=== PATIENT | male | born 1990 | race Caucasian/White ===

== ENCOUNTER 2020-08-15 14:04 | Emergency (ER) | payer OTHER ==
[~2020-08-15] VITALS: Ht 203.2 cm; Wt 132.7 kg
[2020-08-15] MEDS ORDERED: BACTDSTA (14:17)
[2020-08-15 15:44] LABS: BASO % 0.2 % (0.0-1.0); EOS # 0.1 10^3/uL (0.0-0.5); EOS % 0.5 % (0.0-3.0); HEMATOCRIT 45.2 % (42.0-52.0); HEMOGLOBIN 14.9 g/dl (13.5-17.5); LYMPH # 1.8 10^3/uL (1.5-5.0); LYMPH % 13.7 % (24.0-44.0); MEAN CORPUSCULAR HEMOGLOBIN 31.4 pg (27.0-33.0); MEAN CORPUSCULAR VOLUME 95.4 fl (80.0-96.0); MONO # 0.8 10^3/uL (0.0-0.8); MONO % 5.8 % (2.0-8.0); NEUTROPHILS # 10.6 10^3/uL (1.5-8.5); NEUTROPHILS % 79.3 % (36.0-66.0); PLATELET COUNT, AUTOMATED 237 10^3/uL (150-450); RED BLOOD COUNT 4.74 10^6/uL (4.30-6.10); WHITE BLOOD COUNT 13.4 10^3/uL (4.0-10.0)
[2020-08-15 16:09] LABS: ERYTHROCYTE SEDIMENTATION RATE 64 mm/hr (0-15)
[2020-08-15 16:10] LABS: BLOOD UREA NITROGEN 10 MG/DL (7-18); CALCIUM LEVEL 9.1 MG/DL (8.5-10.1); CARBON DIOXIDE LEVEL 29 MEQ/L (21-32); CHLORIDE LEVEL 104 MEQ/L (98-107); GLOMERULAR FILTRATION RATE > 60.0 (>60); GLUCOSE, FASTING 96 MG/DL (70-100); POTASSIUM SERUM 3.9 MEQ/L (3.5-5.1); SODIUM LEVEL 138 MEQ/L (136-145)
[2020-08-15] MEDS ORDERED: MORPHINE 4 MG/ML 1ML VIAL/SYRINGE (J2270) IV ONE (17:45)
[2020-08-15] MEDS ORDERED: VANCOMYCIN HCL 2,000 MG in IV FLUID PLACE HOLDER 1 EA IV ONE (17:45)
[2020-08-15] MEDS ORDERED: ONDANSETRON 4MG/2ML VIAL IV ONE (17:45)
[2020-08-15] MEDS ORDERED: VANCOMYCIN HCL 1,000 MG, VIAL MATE ADAPTER 1 EACH in NS 250 ML IV ONE ×2 (19:00→20:00)
[2020-08-15] MEDS ORDERED: HYDR-3713 PO (19:36)
[2020-08-15 21:08] VITALS: BP 134/65
== END 2020-08-15 21:25 | disposition home or self-care (01) ==
LOC: M ED 14:04
DX: L03.115 Cellulitis of right lower limb (principal); F17.210 Nicotine dependence, cigarettes, uncomplicated
CPT/HCPCS: 80048; 83605; 85025; 85652; 86140; 87040; 96365; 96367; 96368; 96375; 99283; J2270; J2405; J3370

== ENCOUNTER 2020-08-17 21:50 | Observation (INO) | payer OTHER ==
[~2020-08-17] VITALS: Ht 203.2 cm; Wt 131.6 kg
[~2020-08-17 21:50] MED LIST: BACTDSTA; HYDR-3713 PO
[2020-08-17] MEDS ORDERED: KETOROLAC 30 MG/ML 1ML VIAL IV ONE (23:45)
[2020-08-18 00:27] LABS: BASO % 0.3 % (0.0-1.0); EOS # 0.1 10^3/uL (0.0-0.5); EOS % 0.3 % (0.0-3.0); HEMATOCRIT 43.1 % (42.0-52.0); HEMOGLOBIN 14.1 g/dl (13.5-17.5); LYMPH # 1.5 10^3/uL (1.5-5.0); LYMPH % 9.6 % (24.0-44.0); MEAN CORPUSCULAR HEMOGLOBIN 31.3 pg (27.0-33.0); MEAN CORPUSCULAR HGB CONC 32.7 g/dl (32.0-36.5); MEAN CORPUSCULAR VOLUME 95.6 fl (80.0-96.0); MONO # 0.7 10^3/uL (0.0-0.8); MONO % 4.8 % (2.0-8.0); NEUTROPHILS # 12.8 10^3/uL (1.5-8.5); NEUTROPHILS % 84.5 % (36.0-66.0); PLATELET COUNT, AUTOMATED 267 10^3/uL (150-450); RED BLOOD COUNT 4.51 10^6/uL (4.30-6.10); WHITE BLOOD COUNT 15.1 10^3/uL (4.0-10.0)
--- NOTE | 2020-08-18 00:42 | REPVR ---
PROCEDURE INFORMATION: Exam: XR Right Tibia and Fibula Exam date and time: 08/17/2020 11:55 PM Age: 30 years old Clinical indication: Pain; Lower leg; Right; Additional info: Cellulitis TECHNIQUE: Imaging protocol: XR Right tibia and fibula. Views: 2 views. COMPARISON: No relevant prior studies available. FINDINGS: Bones/joints: No acute fracture or dislocation. Soft tissues: Soft tissue swelling. IMPRESSION: 1. No acute osseous abnormality. 2. Soft tissue swelling. Electronically signed by: Jose Daniel Reyes On 08/18/2020 00:41:40 AM
[2020-08-18 00:47] LABS: ERYTHROCYTE SEDIMENTATION RATE 61 mm/hr (0-15)
[2020-08-18 00:48] LABS: RSV AMPLIFICATION NEGATIVE (NEGATIVE)
[2020-08-18 01:10] LABS: ALBUMIN 4.1 GM/DL (3.2-5.2); ALT/SGPT 18 U/L (12-78); BILIRUBIN,TOTAL 0.4 MG/DL (0.2-1.0); BLOOD UREA NITROGEN 13 MG/DL (7-18); CALCIUM LEVEL 9.1 MG/DL (8.5-10.1); CARBON DIOXIDE LEVEL 30 MEQ/L (21-32); CHLORIDE LEVEL 102 MEQ/L (98-107); CREATININE FOR GFR 0.82 MG/DL (0.70-1.30); GLOMERULAR FILTRATION RATE > 60.0 (>60); GLUCOSE, FASTING 99 MG/DL (70-100); POTASSIUM SERUM 3.7 MEQ/L (3.5-5.1); SODIUM LEVEL 137 MEQ/L (136-145); TOTAL PROTEIN 8.1 GM/DL (6.4-8.2)
[2020-08-18] MEDS ORDERED: VANCOMYCIN HCL 1,000 MG, VIAL MATE ADAPTER 1 EACH in NS 250 ML IV ONE ×3 (01:40→03:00)
--- NOTE | 2020-08-18 01:41 | REPVR ---
PROCEDURE INFORMATION: Exam: US Right Non-Vascular Joint or Other Extremity Structure Exam date and time: 08/18/2020 1:29 AM Age: 30 years old Clinical indication: Mass or lump; Lower leg; Right; Additional info: Swelling- assess abscess TECHNIQUE: Imaging protocol: Right US joint or other nonvascular extremity structure or structures. Real-time ultrasound with image documentation. Limited study. Exam focused on the lower extremity in the region of clinical interest. COMPARISON: CR Tibia, Fibula lower leg RIGHT 2020-08-17 23:48 FINDINGS: Soft tissues: Unremarkable. No loculated collections. Vasculature: Heterogeneous complex hypoechoic area measuring 3.8 x 1.1 x 3.4 cm without vascular flow, possible abscess. IMPRESSION: Heterogeneous complex hypoechoic area measuring 3.8 x 1.1 x 3.4 cm without vascular flow, possible abscess. Electronically signed by: Jose Daniel Reyes On 08/18/2020 01:40:38 AM
[2020-08-18] MEDS ORDERED: LIDOCAINE W/EPINEPHRINE 1% 20ML VIAL SC ONE (02:20)
[2020-08-18] MEDS ORDERED: HYDR-4571 PO (04:12)
[2020-08-18] MEDS ORDERED: IBUP1TAB7 PO (04:12)
[2020-08-18] MEDS ORDERED: BACT800T5 PO (04:12)
[2020-08-18] MEDS ORDERED: VANCOMYCIN HCL 1,000 MG, VIAL MATE ADAPTER 1 EACH in NS 250 ML IV SCH (05:00)
[2020-08-18] MEDS ORDERED: MAALOX 30 ML SUSP *UDC PO PRN (05:00)
[2020-08-18] MEDS ORDERED: ACETAMINOPHEN TAB 650MG DOSE (2X325MG) PO PRN (05:00)
[2020-08-18] MEDS ORDERED: MOM 30ML SUSPENSION UDC PO PRN (05:00)
--- NOTE | 2020-08-18 05:02 | HPEPDOC ---
[facility] Medical History & Physical Date of Admission Aug 18, 2020 Date of Service: Aug 18, 2020 History and Physical CHIEF COMPLAINT: Right leg abscess HISTORY OF PRESENT ILLNESS: 30-year-old male with a history of nicotine dependence, presented to the ER with worsening pain in the anterior tibia. Patient was seen 2 days ago in the ER for right leg cellulitis which was demarcated with surgical marker and the patient was discharged with by mouth Bactrim. While the erythema has improved somewhat, patient developed an abscess in the anterior aspect of the tibia with severe pain preventing him from walking. On arrival, patient was afebrile with a also a 6, respiratory 18, blood pressure 110/76, and pulse ox 99% on room air. Found to have illicit doses of 50.1, elevated ESR at 61. Patient denies chest pain, seizures breath, palpitations, fever, chills, nausea, vomiting or diarrhea. Abscess was incised and drained by Dr. Pace in the ER. Gram stain and wound culture were sent as well as blood cultures. Patient was started on empiric vancomycin. Case was discussed with Dr. Rey from the ER who will consult on the patient. Patient admitted to hospitalist service. PAST MEDICAL HISTORY: Nicotine dependence SOCIAL HISTORY: Current smoker 2 packs per day. Rare alcohol use Denies illicit drug use FAMILY HISTORY: Reviewed with patient, did not provide pertinent family history ALLERGIES: Please see below. REVIEW OF SYSTEMS: 10 point review of systems was conducted, rollover findings are noted in HPI. HOME MEDICATIONS: Please see below. PHYSICAL EXAMINATION: VITAL SIGNS: please see below General: NAD, comfortable HEENT: PERRLA, EOMI, sclerae clear Neck: supple, normal ROM, no JVD Respiratory: lungs CTAB, no wheeze, no rales, no crackles CVS: RRR, normal S1, S2, no murmurs Abdo: soft, no masses, no hepatosplenomegaly, BS+, no rebound tenderness Extremities: no edema, pulses 2+. Right leg has large swelling on the upper proximal third of the tibia. Abscess was incised and drained by ER physician, packing in place. MSK: no joint deformities, normal ROM Neuro: no focal neuro deficits, moving all 4 extremities, CN2-12 intact. Strength 5/5 in all 4 extremities. No nystagmus. Psych: calm, cooperative, AAO x 3 LABORATORY DATA: See below. IMAGING: XR tibia and fibula (08/17/20): 1. No acute osseous abnormality. 2. Soft tissue swelling. US RLE non vascular (08/18/20): Heterogeneous complex hypoechoic area measuring 3.8 x 1.1 x 3.4 cm without vascular flow, possible abscess. MICROBIOLOGY: Please see below. ASSESSMENT: 30-year-old male presenting with right lower extremity abscess and cellulitis, failing to respond to by mouth Bactrim therapy. Status post incision and drainage of abscess in the ER. Admitted for IV antibiotics and surgical consultation. PLAN: R leg cellulitis and abscess overlying tibia - afebrile. Increased WBC from 08/15/20 to 15.1. - failed PO bactrim - now developed abscess on anterior leg overlying tibia, below patella - s/p I&D in ER, packing inserted - wound and blood cultures sent - started on vancomycin, will be continued - pain control with oxycodone - Dr. Rey was consulted from the ER. Nicotine dependence - nicotine patch DVT ppx: SCDs. TEDs. Heparin. Dispo: pending clinical improvement. Vital Signs Vital Signs Date Time Temp Pulse Resp B/P (MAP) Pulse Ox O2 Delivery O2 Flow Rate FiO2 08/18/20 00:05 08/17/20 21:51 98.7 86 18 99 Room Air Laboratory Data Labs 24H Laboratory Tests 2 08/18/20 00:00: Immature Granulocyte % (Auto) 0.5, Neutrophils (%) (Auto) 84.5H, Lymphocytes (%) (Auto) 9.6L, Monocytes (%) (Auto) 4.8, Eosinophils (%) (Auto) 0.3, Basophils (%) (Auto) 0.3, Neutrophils # (Auto) 12.8H, Lymphocytes # (Auto) 1.5, Monocytes # (Auto) 0.7, Eosinophils # (Auto) 0.1, Basophils # (Auto) 0.0, Nucleated Red Blood Cells % (auto) 0.0, Erythrocyte Sedimentation Rate 61H, Anion Gap 5L, Glomerular Filtration Rate > 60.0, Calcium Level 9.1, Total Bilirubin 0.4, Aspartate Amino Transf (AST/SGOT) 9, Alanine Aminotransferase (ALT/SGPT) 18, Alkaline Phosphatase 87, C-Reactive Protein, Quantitative 13.10H, Total Protein 8.1, Albumin 4.1, Albumin/Globulin Ratio 1.0, Coronavirus (COVID-19)(PCR) NEGATIVE, Influenza Type A (RT-PCR) NEGATIVE, Influenza Type B (RT-PCR) NEGATIVE, Respiratory Syncytial Virus (PCR) NEGATIVE CBC/BMP Laboratory Tests 08/18/20 00:00 Microbiology Microbiology 08/18/20 Gram Stain, Received Pending 08/18/20 Wound Culture, Received Pending 08/18/20 Blood Culture, Received Pending 08/18/20 Blood Culture, Received Pending Home Medications Scheduled Doxycycline Monohydrate (Doxycycline) 100 Mg Capsule, 1 CAP PO BID Scheduled PRN Hydrocodone/Acetaminophen (Hydrocodone-Acetamin 5-325 mg) 1 Each Tablet, 1 TAB PO Q6H PRN for PAIN LEVEL 6-10 Allergies Coded Allergies: No Known Drug Allergies (Verified Allergy, Unknown, 08/15/20) A-FIB/CHADSVASC A-FIB History Current/History of A-Fib/PAF?: No YOLANDA RHODES MD Aug 18, 2020 05:01
[2020-08-18] MEDS: HEPARIN SOD (PORCINE) 5000UNITS/ML 1ML VIAL/SYRINGE SC SCH ×3 (05:58→20:45)
[2020-08-18 07:16] LABS: BASO % 0.2 % (0.0-1.0); EOS # 0.1 10^3/uL (0.0-0.5); EOS % 0.9 % (0.0-3.0); HEMATOCRIT 37.9 % (42.0-52.0); HEMOGLOBIN 12.4 g/dl (13.5-17.5); LYMPH % 16.5 % (24.0-44.0); MEAN CORPUSCULAR HEMOGLOBIN 31.4 pg (27.0-33.0); MEAN CORPUSCULAR HGB CONC 32.7 g/dl (32.0-36.5); MEAN CORPUSCULAR VOLUME 95.9 fl (80.0-96.0); MONO # 0.9 10^3/uL (0.0-0.8); MONO % 7.6 % (2.0-8.0); NEUTROPHILS % 74.3 % (36.0-66.0); PLATELET COUNT, AUTOMATED 234 10^3/uL (150-450); RED BLOOD COUNT 3.95 10^6/uL (4.30-6.10); WHITE BLOOD COUNT 12.1 10^3/uL (4.0-10.0)
[2020-08-18 07:20] LABS: BLOOD UREA NITROGEN 12 MG/DL (7-18); CALCIUM LEVEL 8.7 MG/DL (8.5-10.1); CARBON DIOXIDE LEVEL 26 MEQ/L (21-32); CHLORIDE LEVEL 105 MEQ/L (98-107); CREATININE FOR GFR 0.78 MG/DL (0.70-1.30); GLOMERULAR FILTRATION RATE > 60.0 (>60); GLUCOSE, FASTING 92 MG/DL (70-100); MAGNESIUM LEVEL 2.1 MG/DL (1.8-2.4); POTASSIUM SERUM 3.5 MEQ/L (3.5-5.1); SODIUM LEVEL 139 MEQ/L (136-145)
[2020-08-18] MEDS: DOCUSATE SODIUM 100MG CAPSULE PO SCH ×2 (09:08→20:43)
[2020-08-18] MEDS: VANCOMYCIN HCL 750 MG, VIAL MATE ADAPTER 1 EACH in NS 250 ML IV SCH ×4 (09:08→20:15)
[2020-08-18] MEDS: oxyCODONE 5MG TAB PO PRN ×3 (12:10→20:44)
--- NOTE | 2020-08-18 15:29 | IPNPDOC ---
Text Note Date of Service The patient was seen on 08/18/20. NOTE Subjective: No any acute events overnight. Patient denied fever, chills, nausea, vomiting. He told me that [place] and he has a lot of spiders at home. Objective: GENERAL APPEARANCE: NAD HEENT: no scleral icterus, no JVD, EOMI CARDIOVASCULAR: S1S2 LUNGS: CTA ABDOMEN: soft & not tender w palpitation MUSCULOSKELETAL: no cyanosis, no swelling INTEGUMENT: Right leg has large swelling on the upper proximal third of the tibia covered with dressing NEUROLOGICAL: cranial nerve function from 2-12 intact intact, follows commands, speech not dysarthric Assessment and plan Patient is 30 years old male presenting with right lower extremity abscess and cellulitis, failing to respond to by mouth Bactrim therapy. Status post incision and drainage of abscess in the ER. Admitted for IV antibiotics and surgical consultation. Right leg cellulitis s/p I&D in ER, packing inserted Ultrasound showed Heterogeneous complex hypoechoic area measuring 3.8 x 1.1 x 3.4 cm without vascular flow, possible abscess Pain management Dr. Rey follows him Continue vancomycin Nicotine dependence - nicotine patch VS,Fishbone, I+O VS, Fishbone, I+O Laboratory Tests 08/18/20 00:00 08/18/20 06:39 Vital Signs Date Time Temp Pulse Resp B/P (MAP) Pulse Ox O2 Delivery O2 Flow Rate FiO2 08/18/20 12:40 16 Room Air 08/18/20 05:00 74 109/53 (71) 94 08/17/20 21:51 98.7 I&O- Last 24 Hours up to 6 AM 08/18/20 06:00 Intake Total 540 ml Balance 540 ml GARY LARES DO Aug 18, 2020 15:29
[2020-08-18 22:00] VITALS: BP 111/56
[2020-08-19] VITALS (7 sets, daily range): BP systolic 109–135; BP diastolic 59–82
[2020-08-19] MEDS: VANCOMYCIN HCL 750 MG, VIAL MATE ADAPTER 1 EACH in NS 250 ML IV SCH ×6 (02:25→19:51)
[2020-08-19] MEDS: oxyCODONE 5MG TAB PO PRN ×4 (02:31→19:53)
[2020-08-19] MEDS: HEPARIN SOD (PORCINE) 5000UNITS/ML 1ML VIAL/SYRINGE SC SCH ×3 (05:19→21:45)
[2020-08-19 06:30] LABS: BASO % 0.4 % (0.0-1.0); EOS # 0.1 10^3/uL (0.0-0.5); EOS % 0.8 % (0.0-3.0); HEMATOCRIT 37.1 % (42.0-52.0); HEMOGLOBIN 11.9 g/dl (13.5-17.5); LYMPH # 2.1 10^3/uL (1.5-5.0); LYMPH % 20.7 % (24.0-44.0); MEAN CORPUSCULAR HEMOGLOBIN 30.5 pg (27.0-33.0); MEAN CORPUSCULAR HGB CONC 32.1 g/dl (32.0-36.5); MEAN CORPUSCULAR VOLUME 95.1 fl (80.0-96.0); MONO # 0.7 10^3/uL (0.0-0.8); MONO % 7.4 % (2.0-8.0); NEUTROPHILS % 70.5 % (36.0-66.0); PLATELET COUNT, AUTOMATED 238 10^3/uL (150-450); WHITE BLOOD COUNT 9.9 10^3/uL (4.0-10.0)
[2020-08-19 07:04] LABS: ALBUMIN 3.3 GM/DL (3.2-5.2); ALT/SGPT 16 U/L (12-78); BILIRUBIN,TOTAL 0.4 MG/DL (0.2-1.0); BLOOD UREA NITROGEN 8 MG/DL (7-18); CALCIUM LEVEL 8.2 MG/DL (8.5-10.1); CARBON DIOXIDE LEVEL 28 MEQ/L (21-32); CHLORIDE LEVEL 105 MEQ/L (98-107); CREATININE FOR GFR 0.62 MG/DL (0.70-1.30); GLOMERULAR FILTRATION RATE > 60.0 (>60); GLUCOSE, FASTING 92 MG/DL (70-100); MAGNESIUM LEVEL 2.2 MG/DL (1.8-2.4); POTASSIUM SERUM 3.9 MEQ/L (3.5-5.1); SODIUM LEVEL 138 MEQ/L (136-145); TOTAL PROTEIN 6.5 GM/DL (6.4-8.2)
[2020-08-19] MEDS: DOCUSATE SODIUM 100MG CAPSULE PO SCH ×2 (08:11→19:51)
[2020-08-19] MEDS ORDERED: MIDAZOLAM INJ 2MG/2ML VIAL (J2250 PER 1MG) As Ordered ONE (11:06)
[2020-08-19] MEDS ORDERED: fentaNYL 100 MCG/2 ML INJECTION (J3010) As Ordered ONE (11:07)
[2020-08-19] MEDS ORDERED: LIDOCAINE 2% 100MG/5ML SDV (FOR ANES.) As Ordered ONE (11:07)
[2020-08-19] MEDS ORDERED: propofoL 200 MG/20 ML VIAL As Ordered ONE (11:07)
[2020-08-19] MEDS ORDERED: ONDANSETRON 4MG/2ML VIAL As Ordered ONE (11:07)
[2020-08-19] MEDS ORDERED: LIDOCAINE 1% SDV 30ML VIAL As Ordered ONE (11:22)
[2020-08-19] MEDS ORDERED: BUPIVACAINE HCL 0.5% 30 ML VIAL As Ordered ONE (11:22)
[2020-08-19] MEDS ORDERED: KETAMINE HCL 200 MG/20 ML VIAL As Ordered ONE (11:32)
[2020-08-19] MEDS ORDERED: ONDANSETRON 4MG/2ML VIAL IV PRN (12:00)
[2020-08-19] MEDS ORDERED: METOCLOPRAMIDE INJ 10MG/2ML VIAL (J2765 PER 1) IV PRN (12:00)
[2020-08-19] MEDS ORDERED: PERCOCET 5MG/325MG TAB PO PRN (12:00)
[2020-08-19] MEDS ORDERED: LR 1,000 ML IV SCH (12:00)
[2020-08-19] MEDS ORDERED: KETOROLAC 30 MG/ML 1ML VIAL IV PRN (12:00)
[2020-08-19] MEDS ORDERED: fentaNYL 100 MCG/2 ML INJECTION (J3010) IV PRN (12:00)
--- NOTE | 2020-08-19 12:14 | ROOPDOC ---
[facility] Report Of Operation Report of Operation DATE OF PROCEDURE: 08/19/20 PREPROCEDURE DIAGNOSES: Necrotic infected wound to right anterior leg, possible insect/spider bite. POSTPROCEDURE DIAGNOSES: Necrotic infected wound to the right anterior leg. PROCEDURE PERFORMED: Incision and drainage, excisional debridement of necrotic soft tissues to the right anterior leg SURGEON: Lonny Garcia MD, ANESTHESIA: Local anesthesia using 1% lidocaine mixed with 1/4% Marcaine, monitored anesthesia care. ESTIMATED BLOOD LOSS: Approximately 10 mL. COMPLICATIONS: None. REMARKS: Patient admitted with about a 4-day history of sudden onset of increased swelling with progressive necrosis of the skin and soft tissue to the right anterior leg despite IV antibiotics. Patient not sure how this occurred, being suspected to be an insect bite or spider bite. There is skin necrosis and edema that is persistent despite the cellulitis improving.. FINDINGS: Necrotic skin and soft tissue was removed with sharp excisional debridement with a mixture of knife and Bovie cautery. Eventual wound came out to 6 x 6 x 1 cm. DESCRIPTION OF PROCEDURE: Patient is on vancomycin for coverage for Staph aureus. He was brought to the operating room, he remained on the stretcher. Monitoring leads as well as oxygen was placed. IV sedation then started. He is right anterior leg was prepped and draped in the usual sterile fashion. Insert timeout Uropathy has about a 5 cm patch of skin and soft tissue that is swollen the skin appears necrotic with some sloughing of the skin due to the edema of surrounding tissue. This was opened up in the emergency room yesterday and there is no active purulent drainage but clearly there is necrotic soft tissue underneath. He has some receding erythema over the entire lower leg which is improved with IV antibiotics. Not much edema beyond the infected tissues. Ankle does not seem to be so edematous. I liberally infiltrated local anesthesia around the skin and soft tissue. Initially used a knife and circumferentially incised the clearly necrotic sloughed off skin revealing necrotic soft tissues underneath. This was removed with Bovie cautery. This did not reach the muscles underneath but just the subcutaneous tissue. We continued debriding until we got to healthy edges. There work still some leftover edematous fat at the base but there is a good amount of oozing at the end. After checking for hemostasis with Bovie cautery, this was packed with saline moistened vaginal packing, prep gauze dressing placed on top of it and wrapped with Kerlix roll. Patient tolerated procedure well he was promptly awakened and brought to recovery room stable. LONNY GARCIA MD Aug 19, 2020 12:14
--- NOTE | 2020-08-19 12:42 | IPNPDOC ---
Text Note Date of Service The patient was seen on 08/19/20. NOTE Subjective: No any acute events overnight. Patient denied fever, chills, nausea, vomiting. He reported mild pain in the right leg Objective: GENERAL APPEARANCE: NAD HEENT: no scleral icterus, no JVD, EOMI CARDIOVASCULAR: S1S2 LUNGS: CTA ABDOMEN: soft & not tender w palpitation MUSCULOSKELETAL: no cyanosis, no swelling INTEGUMENT: Right leg has large swelling on the upper proximal third of the tibia covered with dressing NEUROLOGICAL: cranial nerve function from 2-12 intact intact, follows commands, speech not dysarthric Assessment and plan Patient is 30 years old male presenting with right lower extremity abscess and cellulitis, failing to respond to by mouth Bactrim therapy. Status post incision and drainage of abscess in the ER. Admitted for IV antibiotics and surgical consultation. Right leg cellulitis s/p I&D in ER, packing inserted Ultrasound showed Heterogeneous complex hypoechoic area measuring 3.8 x 1.1 x 3.4 cm without vascular flow, possible abscess Pain management Dr. Flanagan will proceed with debridement today Continue vancomycin Nicotine dependence - nicotine patch VS,Fishbone, I+O VS, Fishbone, I+O Laboratory Tests 08/19/20 05:47 Vital Signs Date Time Temp Pulse Resp B/P (MAP) Pulse Ox O2 Delivery O2 Flow Rate FiO2 08/19/20 12:18 71 18 133/84 (100) 95 Room Air 08/19/20 11:51 97.0 10.0 I&O- Last 24 Hours up to 6 AM 08/19/20 06:00 Intake Total 2050 ml Balance 2050 ml GARY LARES DO Aug 19, 2020 12:42
[2020-08-19] MEDS: NICOTINE 21MG/24HR 1 EA TRANSDERMAL TD PRN (23:25)
[2020-08-20] MEDS: VANCOMYCIN HCL 750 MG, VIAL MATE ADAPTER 1 EACH in NS 250 ML IV SCH ×6 (02:23→20:08)
[2020-08-20] MEDS: oxyCODONE 5MG TAB PO PRN ×4 (02:40→21:43)
[2020-08-20] MEDS: HEPARIN SOD (PORCINE) 5000UNITS/ML 1ML VIAL/SYRINGE SC SCH ×3 (05:39→21:43)
[2020-08-20 06:00] VITALS: BP 107/75
[2020-08-20 06:52] LABS: BASO % 0.5 % (0.0-1.0); EOS # 0.1 10^3/uL (0.0-0.5); EOS % 1.5 % (0.0-3.0); HEMATOCRIT 40.8 % (42.0-52.0); HEMOGLOBIN 13.1 g/dl (13.5-17.5); LYMPH # 1.8 10^3/uL (1.5-5.0); LYMPH % 29.4 % (24.0-44.0); MEAN CORPUSCULAR HEMOGLOBIN 30.9 pg (27.0-33.0); MEAN CORPUSCULAR HGB CONC 32.1 g/dl (32.0-36.5); MEAN CORPUSCULAR VOLUME 96.2 fl (80.0-96.0); MONO # 0.5 10^3/uL (0.0-0.8); MONO % 8.1 % (2.0-8.0); NEUTROPHILS # 3.7 10^3/uL (1.5-8.5); NEUTROPHILS % 60.3 % (36.0-66.0); PLATELET COUNT, AUTOMATED 262 10^3/uL (150-450); RED BLOOD COUNT 4.24 10^6/uL (4.30-6.10); WHITE BLOOD COUNT 6.1 10^3/uL (4.0-10.0)
[2020-08-20 07:11] LABS: ALBUMIN 3.2 GM/DL (3.2-5.2); ALT/SGPT 15 U/L (12-78); BILIRUBIN,TOTAL 0.3 MG/DL (0.2-1.0); BLOOD UREA NITROGEN 8 MG/DL (7-18); CALCIUM LEVEL 8.6 MG/DL (8.5-10.1); CARBON DIOXIDE LEVEL 26 MEQ/L (21-32); CHLORIDE LEVEL 108 MEQ/L (98-107); CREATININE FOR GFR 0.66 MG/DL (0.70-1.30); GLOMERULAR FILTRATION RATE > 60.0 (>60); GLUCOSE, FASTING 88 MG/DL (70-100); MAGNESIUM LEVEL 2.3 MG/DL (1.8-2.4); POTASSIUM SERUM 4.1 MEQ/L (3.5-5.1); SODIUM LEVEL 138 MEQ/L (136-145)
[2020-08-20] MEDS: DOCUSATE SODIUM 100MG CAPSULE PO SCH ×2 (07:51→20:09)
[2020-08-20 09:58] VITALS: BP 138/87
--- NOTE | 2020-08-20 11:15 | IPNPDOC ---
Text Note Date of Service The patient was seen on 08/20/20. NOTE Subjective: No any acute events overnight. Patient denied fever, chills, nausea, vomiting. Objective: GENERAL APPEARANCE: NAD HEENT: no scleral icterus, no JVD, EOMI CARDIOVASCULAR: S1S2 LUNGS: CTA ABDOMEN: soft & not tender w palpitation MUSCULOSKELETAL: no cyanosis, no swelling INTEGUMENT: Right leg has large swelling on the upper proximal third of the tibia covered with dressing NEUROLOGICAL: cranial nerve function from 2-12 intact intact, follows commands, speech not dysarthric Assessment and plan Patient is 30 years old male presenting with right lower extremity abscess and cellulitis, failing to respond to by mouth Bactrim therapy. Status post incision and drainage of abscess in the ER. Admitted for IV antibiotics and surgical consultation. Right leg cellulitis s/p I&D in ER, packing inserted Ultrasound showed Heterogeneous complex hypoechoic area measuring 3.8 x 1.1 x 3.4 cm without vascular flow, possible abscess Pain management Dr. Flanagan did debridement yesterday. Wound culture positive for MRSA Continue vancomycin Nicotine dependence - nicotine patch VS,Fishbone, I+O VS, Fishbone, I+O Laboratory Tests 08/20/20 06:33 Vital Signs Date Time Temp Pulse Resp B/P (MAP) Pulse Ox O2 Delivery O2 Flow Rate FiO2 08/20/20 10:40 16 08/20/20 06:00 98.1 74 107/75 (86) 97 Room Air 08/19/20 11:51 10.0 I&O- Last 24 Hours up to 6 AM 08/20/20 06:00 Intake Total 4220 ml Output Total 2835 ml Balance 1385 ml GARY LARES DO Aug 20, 2020 11:15
[2020-08-20 14:00] VITALS: BP 126/72
[2020-08-20 22:00] VITALS: BP 138/77
[2020-08-21] MEDS: VANCOMYCIN HCL 750 MG, VIAL MATE ADAPTER 1 EACH in NS 250 ML IV SCH ×2 (02:12→03:37)
[2020-08-21 03:40] VITALS: BP 130/89
[2020-08-21] MEDS ORDERED: CALCIUM CARBONATE 500 MG CHEW U/D PO ONE (03:55)
[2020-08-21] MEDS: NICOTINE 21MG/24HR 1 EA TRANSDERMAL TD PRN (04:07)
[2020-08-21] MEDS: oxyCODONE 5MG TAB PO PRN (04:07)
[2020-08-21] MEDS: HEPARIN SOD (PORCINE) 5000UNITS/ML 1ML VIAL/SYRINGE SC SCH (05:01)
[2020-08-21 06:00] VITALS: BP 130/72
[2020-08-21 06:23] LABS: BASO % 0.4 % (0.0-1.0); EOS # 0.1 10^3/uL (0.0-0.5); EOS % 1.5 % (0.0-3.0); HEMATOCRIT 40.4 % (42.0-52.0); HEMOGLOBIN 13.1 g/dl (13.5-17.5); LYMPH # 1.9 10^3/uL (1.5-5.0); LYMPH % 27.6 % (24.0-44.0); MEAN CORPUSCULAR HGB CONC 32.4 g/dl (32.0-36.5); MEAN CORPUSCULAR VOLUME 95.7 fl (80.0-96.0); MONO # 0.6 10^3/uL (0.0-0.8); MONO % 8.6 % (2.0-8.0); NEUTROPHILS # 4.2 10^3/uL (1.5-8.5); NEUTROPHILS % 61.6 % (36.0-66.0); PLATELET COUNT, AUTOMATED 279 10^3/uL (150-450); RED BLOOD COUNT 4.22 10^6/uL (4.30-6.10); WHITE BLOOD COUNT 6.9 10^3/uL (4.0-10.0)
[2020-08-21 06:54] LABS: ALBUMIN 3.1 GM/DL (3.2-5.2); ALT/SGPT 18 U/L (12-78); BILIRUBIN,TOTAL 0.4 MG/DL (0.2-1.0); BLOOD UREA NITROGEN 8 MG/DL (7-18); C REACTIVE PROTEIN QUANTITATIV 4.17 MG/DL (0.00-0.30); CALCIUM LEVEL 8.6 MG/DL (8.5-10.1); CARBON DIOXIDE LEVEL 28 MEQ/L (21-32); CHLORIDE LEVEL 107 MEQ/L (98-107); CREATININE FOR GFR 0.76 MG/DL (0.70-1.30); GLOMERULAR FILTRATION RATE > 60.0 (>60); GLUCOSE, FASTING 87 MG/DL (70-100); MAGNESIUM LEVEL 2.3 MG/DL (1.8-2.4); POTASSIUM SERUM 3.9 MEQ/L (3.5-5.1); SODIUM LEVEL 138 MEQ/L (136-145); TOTAL PROTEIN 7.6 GM/DL (6.4-8.2); TROPONIN I < 0.02 NG/ML (< 0.10)
[2020-08-21] MEDS: DOCUSATE SODIUM 100MG CAPSULE PO SCH ×2 (08:21→08:22)
--- NOTE | 2020-08-21 09:21 | IPNPDOC ---
Text Note Date of Service The patient was seen on 08/21/20. NOTE right leg wound examined today, looks clean, with starting to show pink tissue, erythema almost gone, no purulent drainage plan: ok to go home with hydrofera blue packing clean wound daily plug in with wound care clinic for subsequent wound care as outpt. will require intermittent debridement probably will take 2- 3 months to fully heal. discussed with Dr. Casas VSFredy, I+O VSFredy I+O Laboratory Tests 08/21/20 05:49 Vital Signs Date Time Temp Pulse Resp B/P (MAP) Pulse Ox O2 Delivery O2 Flow Rate FiO2 08/21/20 06:00 97.2 70 17 130/72 (91) 98 Room Air 08/19/20 11:51 10.0 I&O- Last 24 Hours up to 6 AM 08/21/20 06:00 Intake Total 1805 ml Output Total 1600 ml Balance 205 ml CARRIE SALDAÑA MD Aug 21, 2020 09:21
[2020-08-21] MEDS ORDERED: DOXY-350 PO (10:40)
--- NOTE | 2020-08-21 13:36 | DS.PDOC ---
Discharge Summary General Date of Admission Aug 17, 2020 at 21:51 Date of Discharge 08/21/20 Discharge Summary PROCEDURES PERFORMED DURING STAY: [None]. ADMITTING DIAGNOSES: Right leg cellulitis Nicotine dependence DISCHARGE DIAGNOSES: Right leg cellulitis Nicotine dependence COMPLICATIONS/CHIEF COMPLAINT: Abscess, Cellulitis Of R Lower Leg. HISTORY OF PRESENT ILLNESS: Patient is 30 years old male presenting with right lower extremity abscess and cellulitis, failing to respond to by mouth Bactrim therapy. Status post incision and drainage of abscess in the ER. Admitted for IV antibiotics and surgical consultation. HOSPITAL COURSE: During the hospital stay following issue addressed Right leg cellulitis s/p I&D in ER, packing inserted Ultrasound showed Heterogeneous complex hypoechoic area measuring 3.8 x 1.1 x 3.4 cm without vascular flow, possible abscess Pain management Dr. Flanagan did debridement . Wound culture positive for MRSA Patient received vancomycin Nicotine dependence - nicotine patch DISCHARGE MEDICATIONS: Please see below. ALLERGIES: Please see below. PHYSICAL EXAMINATION ON DISCHARGE: VITAL SIGNS: Please see below. GENERAL APPEARANCE: NAD HEENT: no scleral icterus, no JVD, EOMI CARDIOVASCULAR: S1S2 LUNGS: CTA ABDOMEN: soft & not tender w palpitation MUSCULOSKELETAL: no cyanosis, no swelling INTEGUMENT: Right leg has large swelling on the upper proximal third of the tibia covered with dressing NEUROLOGICAL: cranial nerve function from 2-12 intact intact, follows commands, speech not dysarthric LABORATORY DATA: Please see below. PROGNOSIS: Fair ACTIVITY: [As tolerated]. DIET: Regular DISPOSITION: 01 Home, Self-Care. DISCHARGE INSTRUCTIONS: Follow surgical team recommendation ITEMS TO FOLLOWUP ON ON OUTPATIENT: Follow-up with wound care in 2 days DISCHARGE CONDITION: [Stable]. TIME SPENT ON DISCHARGE: 40 minutes. Vital Signs/I&Os Vital Signs Date Time Temp Pulse Resp B/P (MAP) Pulse Ox O2 Delivery O2 Flow Rate FiO2 08/21/20 06:00 97.2 70 17 130/72 (91) 98 Room Air 08/19/20 11:51 10.0 I&O- Last 24 Hours up to 6 AM 08/21/20 06:00 Intake Total 1805 ml Output Total 1600 ml Balance 205 ml Laboratory Data Labs 24H Laboratory Tests 2 08/21/20 05:49: Immature Granulocyte % (Auto) 0.3, Neutrophils (%) (Auto) 61.6, Lymphocytes (%) (Auto) 27.6, Monocytes (%) (Auto) 8.6H, Eosinophils (%) (Auto) 1.5, Basophils (%) (Auto) 0.4, Neutrophils # (Auto) 4.2, Lymphocytes # (Auto) 1.9, Monocytes # (Auto) 0.6, Eosinophils # (Auto) 0.1, Basophils # (Auto) 0.0, Nucleated Red B lood Cells % (auto) 0.0, Anion Gap 3L, Glomerular Filtration Rate > 60.0, Calcium Level 8.6, Magnesium Level 2.3, Total Bilirubin 0.4, Aspartate Amino Transf (AST/SGOT) 13, Alanine Aminotransferase (ALT/SGPT) 18, Alkaline Phosphatase 68, Troponin I < 0.02, C-Reactive Protein, Quantitative 4.17H, Total Protein 7.6, Albumin 3.1L, Albumin/Globulin Ratio 0.7 CBC/BMP Laboratory Tests 08/21/20 05:49 Microbiology Microbiology 08/18/20 Gram Stain - Final, Complete 08/18/20 Wound Culture - Final, Complete Staph.aureus Methicillin Resis 08/18/20 Blood Culture - Preliminary, Resulted No Growth after 72 hours. All specime... 08/18/20 Blood Culture - Preliminary, Resulted No Growth after 72 hours. All specime... Discharge Medications Scheduled Doxycycline Monohydrate (Doxycycline) 100 Mg Capsule, 1 CAP PO BID Scheduled PRN Hydrocodone/Acetaminophen (Hydrocodone-Acetamin 5-325 mg) 1 Each Tablet, 1 TAB PO Q6H PRN for PAIN LEVEL 6-10, (Reported) Allergies Coded Allergies: No Known Drug Allergies (Verified Allergy, Unknown, 08/15/20) GARY LARES DO Aug 21, 2020 13:36
[2020-08-21] MEDS ORDERED: HYDR-4571 PO (18:36)
== END 2020-08-21 11:51 | disposition home or self-care (01) ==
LOC: M ED 21:50 → EEVIPCON 21:51 → M ED INP 21:51 → ENRESERV 08-18 14:35 → M MSPAV 08-18 15:46
PROVIDERS: ADMIT Family Medicine; ATTEND Internal Medicine
DX: L02.415 Cutaneous abscess of right lower limb (principal); I96 Gangrene, not elsewhere classified; A49.02 Methicillin resistant Staphylococcus aureus infection, unspecified site; F17.200 Nicotine dependence, unspecified, uncomplicated; Z79.2 Long term (current) use of antibiotics
CPT/HCPCS: 10060; 11042; 36415; 73590; 76882; 80053; 80202; 83735; 85025; 85652; 86140; 87040; 87070; 87077; 87186; 87205; 87631; 93041; 96365; 96366; 96372; 96376; 99284; J1644; J1885; J2250; J2405; J3010; J3370